=== PATIENT | female | born 1990 | race Two or more races ===

== ENCOUNTER 2022-07-06 15:43 | Emergency (ER) | payer MEDICAID, OTHER ==
[~2022-07-06] VITALS: Ht 160 cm; Wt 86.0 kg
[2022-07-06 16:54] VITALS: BP 123/76
[2022-07-06] MEDS ORDERED: IBUP800T27 PO (17:51)
== END 2022-07-06 17:56 | disposition home or self-care (01) ==
LOC: ER 15:43
DX: S63.92XA Sprain of unspecified part of left wrist and hand, initial encounter (principal); W18.00XA Striking against unspecified object with subsequent fall, initial encounter; Y93.89 Activity, other specified; Y92.89 Other specified places as the place of occurrence of the external cause; Y99.8 Other external cause status
CPT/HCPCS: 73130